=== PATIENT | female | born 1985 | race American Indian/Alaskan Native ===

== ENCOUNTER 2017-06-20 15:13 | Inpatient (IN) | payer OTHER ==
[2017-06-20 16:01] VITALS: BMI 26.6
[2017-06-20] MEDS ORDERED: Sodium Chloride 0.9% 1,000 ML IV STA ×2 (16:34→18:14)
[2017-06-20] MEDS ORDERED: Morphine 4 mg/ml ISec IVP STA ×3 (16:34→20:27)
[2017-06-20 17:12] LABS: VENOUS BLOOD GAS PO2 30 mm/Hg (30-55); VENOUS BLOOD PH 7.36 (7.32-7.43)
[2017-06-20 17:17] LABS: ALB/GLOB RATIO 1.5 (1.1-1.8); ALBUMIN 4.1 g/dL (3.0-4.8); ALT/SGPT 34 U/L (7-56); AST/SGOT 21 U/L (14-36); BLOOD UREA NITROGEN 8 mg/dL (7-21); CALCIUM 9.7 mg/dL (8.4-10.5); GFR AFRICAN-AMERICAN > 60; GFR NON-AFRICAN AMERICAN > 60; LIPASE 50 U/L (23-300)
--- NOTE | 2017-06-20 17:19 | RAD ---
HISTORY: abd pain COMPARISON: None available. TECHNIQUE: Chest, one view. FINDINGS: LUNGS: No focal consolidation. Please note that chest x-ray has limited sensitivity for the detection of pulmonary masses. PLEURA: No significant pleural effusion identified. No definite pneumothorax . CARDIOVASCULAR: Enlargement of the cardiac silhouette. OSSEOUS STRUCTURES: No acute osseous abnormality identified. VISUALIZED UPPER ABDOMEN: Unremarkable. OTHER FINDINGS: None. IMPRESSION: Enlargement of the cardiac silhouette. Unusual in a patient of this young age. Correlate clinically including echocardiogram if indicated.
[2017-06-20 17:25] LABS: BASO # 0.02 K/mm3 (0.0-2.0); BASO % 0.2 % (0.0-3.0); EOS # 0.1 (0.0-0.7); EOS % 1.3 % (1.5-5.0); GRAN # 7.53 (1.4-6.5); GRAN % 73.3 % (50.0-68.0); HEMOGLOBIN 12.8 g/dL (12.0-16.0); LYMPH % 19.3 % (22.0-35.0); MEAN CELL VOLUME 83.6 fl (80.0-105.0); MEAN CORPUSCULAR HGB CONC 33.5 g/dl (31.0-37.0); MEAN PLATELET VOLUME 10.1 fl (7.0-11.0); MONO # 0.6 (0.1-0.6); MONO % 5.9 % (1.0-6.0); RBC 4.57 10^6/uL (3.5-6.1); RED CELL DISTRIBUTION WIDTH 13.4 % (11.5-14.5); WHITE BLOOD COUNT 10.3 10^3/ul (4.5-11.0)
[2017-06-20 17:27] LABS: URINE BILIRUBIN NEGATIVE (NEGATIVE); URINE BLOOD NEGATIVE (NEGATIVE); URINE GLUCOSE (UA) NEGATIVE (NEGATIVE); URINE LEUKOCYTE ESTERASE TRACE Leu/uL (NEGATIVE); URINE NITRATE NEGATIVE (NEGATIVE); URINE PROTEIN NEGATIVE mg/dL (<30 mg/dL); URINE UROBILINOGEN 0.2 E.U./dL (<1 E.U./dL)
[2017-06-20] MEDS ORDERED: Morphine 4 mg/ml ISec ONE (17:27)
[2017-06-20 17:35] LABS: URINE APPEARANCE CLEAR (CLEAR); URINE COLOR YELLOW (YELLOW)
--- NOTE | 2017-06-20 17:42 | CP.PCM.CON ---
Addendum entered and electronically signed by Contreras Valverde MD 06/21/17 09: 06: Patient remained stable overnight, pain more localized to lower abdomen. Awaits medical workup this morning for cardiomegaly. Original Note: History of Present Illness - History of Present Illness History of Present Illness: Patient is a 32F with with no significant PMH 3months S/P who presented for sudden onset of acute abdominal pain last night. Patient states that at 10PM yesterday she experienced diffuse crampy pain. She took gas-x, mag citrate, and pepto-bismol with no relief. Patient had a regular BM yesterday AM but has had dark diarrhea after taking mag-citrate and pepto-bismol. No nausea, vomiting, dysuria, hematuria, melena, hematochezia, vaginal discharge or bleeding. Patient complains of chills but does not have a fever in the ER. Patient is tachycardic in the 110's but no other hemodynamic abnormailities. Patient has no sick contacts, never had this before. Review of Systems - Review of Systems All systems: reviewed and no additional remarkable complaints except (as per HPI ) Past Patient History - Infectious Disease Hx of Infectious Diseases: None - Past Medical History & Family History Past Medical History?: Yes Past Family History: Reviewed and not pertinent - Past Social History Smoking Status: Light Smoker < 10 Cigarettes Daily Alcohol: Occasional Drugs: Cannabis Home Situation {Lives}: With Family - PSYCHIATRIC Hx Substance Use: No - SURGICAL HISTORY Hx Surgeries: Yes Hx Carotid Endarterectomy: Yes (Last 03/23/17) Hx Section: Yes (03/2017) Meds Allergies/Adverse Reactions: Allergies Allergy/AdvReac Type Severity Reaction Status Date / Time pineapple Allergy SWELLING Verified 06/20/17 16:09 Physical Exam - Constitutional Appears: Non-toxic, No Acute Distress - Head Exam Head Exam: ATRAUMATIC, NORMOCEPHALIC - Eye Exam Eye Exam: Normal appearance, Nystagmus (horizontal) - ENT Exam ENT Exam: Mucous Membranes Moist, Normal Oropharynx - Respiratory Exam Respiratory Exam: NORMAL BREATHING PATTERN. absent: Accessory Muscle Use, Respiratory Distress - Cardiovascular Exam Cardiovascular Exam: Tachycardia, REGULAR RHYTHM - GI/Abdominal Exam GI & Abdominal Exam: Rebound, Soft, Tenderness (Diffuse, greatest in BL lower quadrants). absent: Distended Additional comments: transverse section scar well healed - Extremities Exam Extremities exam: Positive for: pedal pulses present. Negative for: calf tenderness, pedal edema - Neurological Exam Neurological exam: Alert, Oriented x3 - Psychiatric Exam Psychiatric exam: Normal Affect, Normal Mood - Skin Skin Exam: Dry, Normal Color, Warm Results - Vital Signs Recent Vital Signs: Last Vital Signs Temp 98.3 F 06/20/17 15:53 Pulse 110 H 06/20/17 15:53 Resp 18 06/20/17 15:53 BP 113/77 06/20/17 15:53 Pulse Ox 99 06/20/17 15:53 - Labs Result Diagrams: 06/20/17 16:51 06/20/17 16:51 Labs: Laboratory Results - last 24 hr 06/20/17 06/20/17 06/20/17 16:51 16:51 16:51 WBC 10.3 RBC 4.57 Hgb 12.8 Hct 38.2 MCV 83.6 MCH 28.0 MCHC 33.5 RDW 13.4 Plt Count 363 MPV 10.1 Gran % 73.3 H Lymph % (Auto) 19.3 L [place] % (Auto) 5.9 Eos % (Auto) 1.3 L Baso % (Auto) 0.2 Gran # 7.53 H Lymph # (Auto) 2.0 [place] # (Auto) 0.6 Eos # (Auto) 0.1 Baso # (Auto) 0.02 pO2 VBG pH VBG pCO2 VBG HCO3 VBG Total CO2 VBG O2 Sat (Calc) VBG Base Excess VBG Potassium Sodium 143 Chloride 107 Glucose Lactate FiO2 Potassium 3.8 Carbon Dioxide 24 Anion Gap 17 BUN 8 Creatinine 0.7 Est GFR ( Amer) > 60 Est GFR (Non-Af Amer) > 60 Random Glucose 105 Calcium 9.7 Total Bilirubin 1.1 AST 21 ALT 34 Alkaline Phosphatase 44 Total Protein 6.9 Albumin 4.1 Globulin 2.8 Albumin/Globulin Ratio 1.5 Lipase 50 Venous Blood Potassium Urine Color Yellow Urine Appearance Clear Urine pH 7.0 Ur Specific [place] 1.010 Urine Protein Negative Urine Glucose (UA) Negative Urine Ketones Negative Urine Blood Negative Urine Nitrate Negative Urine Bilirubin Negative Urine Urobilinogen 0.2 Ur Leukocyte Esterase Trace H 06/20/17 16:51 WBC RBC Hgb Hct MCV MCH MCHC RDW Plt Count MPV Gran % Lymph % (Auto) [place] % (Auto) Eos % (Auto) Baso % (Auto) Gran # Lymph # (Auto) [place] # (Auto) Eos # (Auto) Baso # (Auto) pO2 30 VBG pH 7.36 VBG pCO2 48.0 VBG HCO3 27.1 VBG Total CO2 28.6 H VBG O2 Sat (Calc) 62.9 VBG Base Excess 1.0 VBG Potassium 3.9 Sodium 139.0 Chloride 106.0 Glucose 106 H Lactate 1.1 FiO2 21.0 Potassium Carbon Dioxide Anion Gap BUN Creatinine Est GFR ( Amer) Est GFR (Non-Af Amer) Random Glucose Calcium Total Bilirubin AST ALT Alkaline Phosphatase Total Protein Albumin Globulin Albumin/Globulin Ratio Lipase Venous Blood Potassium 3.9 Urine Color Urine Appearance Urine pH Ur Specific [place] Urine Protein Urine Glucose (UA) Urine Ketones Urine Blood Urine Nitrate Urine Bilirubin Urine Urobilinogen Ur Leukocyte Esterase Assessment & Plan - Assessment and Plan (Free Text) Assessment: 32F with severe abdominal pain Plan: F/U CT abdomen and pelvis official report--no signs of free-air, appendicitis, or SBO on preliminary review PRN pain and nausea medication Vaginal exam with culture Rapid flu test aggressive IV hydration AM labs Consider trans-vaginal ultrasound and DIETITIAN TEACHING consult Discussed with Dr. Valverde--further recs per her Jennifer Camacho, PGY2
[2017-06-20 17:45] LABS: URINE RBC NEGATIVE /hpf (0-2); URINE WBC 0 - 2 /hpf (0-6)
[2017-06-20] MEDS ORDERED: Iohexol 350 MG/100 ML VIAL ONE (18:20)
--- NOTE | 2017-06-20 18:45 | ED PDOC ---
Arrival/HPI <Hanna Chowdhury - Last Filed: 06/20/17 23:08> - General Historian: Patient - History of Present Illness Time/Duration: Other (10pm last night) Symptom Onset: Sudden Symptom Course: Unchanged Quality: Cramping Severity Level: 10 <Peri Patel - Last Filed: 06/21/17 02:53> - General Chief Complaint: Abdominal Pain Time Seen by Provider: 06/20/17 15:31 - History of Present Illness Narrative History of Present Illness (Text): 06/20/17 18:41 32-year-old female presents today with abdominal pain. Patient states last night around 10 PM she suddenly developed cramping pain to the entire abdomen. Patient initially thought that it was gas or she tried Gas-X Pepto-Bismol and citrate of Magnesia without improvement in her symptoms. Patient denies chest pain or shortness of breath. Denies fevers or chills. Patient denies radiation of pain to the back. Patient denies vaginal bleeding or vaginal discharge. Patient states she was just resting comfortably burping her child when the pain started. Patient states the pain has been constant. Patient rates the pain as a 10 out of 10. Patient states 3 months ago she had a . Patient states she's had no issues since then. Patient states her last bowel movement was while she was in the emergency room. Patient states she is passing gas. No other complaints (Peri Patel) Past Medical History - Provider Review Nursing Documentation Reviewed: Yes - Travel History Have you recently traveled outside [place] w/in the past 3 mons?: No - Infectious Disease Hx of Infectious Diseases: None - Psychiatric Hx Substance Use: No - Surgical History Hx Carotid Endarterectomy: Yes (Last 03/23/17) Hx Section: Yes (03/2017) <Peri Patel - Last Filed: 06/21/17 02:53> Family/Social History - Physician Review Nursing Documentation Reviewed: Yes Family/Social History: Unknown Family HX Smoking Status: Light Smoker < 10 Cigarettes Daily Hx Alcohol Use: Yes Frequency of alcohol use: Socially Hx Substance Use: No <Peri Patel - Last Filed: 06/21/17 02:53> Allergies/Home Meds <Hanna Chowdhury - Last Filed: 06/20/17 23:08> <Peri Patel T - Last Filed: 06/21/17 02:53> Allergies/Adverse Reactions: Allergies pineapple Allergy (Verified 06/20/17 16:09) SWELLING Home Medications: Home Meds Medication Instructions Recorded Confirmed No Known Home Med 06/20/17 06/20/17 Review of Systems - Review of Systems Constitutional: absent: Fatigue, Fevers Respiratory: absent: SOB, Cough Cardiovascular: absent: Chest Pain, Palpitations Gastrointestinal: Abdominal Pain. absent: Constipation, Diarrhea, Nausea, Vomiting Genitourinary Female: absent: Dysuria, Frequency, Hematuria, Vaginal Bleeding, Vaginal Discharge Musculoskeletal: absent: Arthralgias, Back Pain, Neck Pain Skin: absent: Rash, Pruritis Neurological: absent: Headache, Dizziness Psychiatric: absent: Anxiety, Depression, Suicidal Ideation <Peri Patel - Last Filed: 06/21/17 02:53> Physical Exam Vital Signs Reviewed: Yes Temperature: Afebrile Blood Pressure: Normal Pulse: Tachycardic Respiratory Rate: Normal Appearance: Positive for: Well-Appearing, Non-Toxic, Uncomfortable Pain Distress: Mild Mental Status: Positive for: Alert and Oriented X 3 - Systems Exam Head: Present: Atraumatic Mouth: Present: Moist Mucous Membranes Neck: Present: Normal Range of Motion Respiratory/Chest: Present: Clear to Auscultation, Good Air Exchange. No: Respiratory Distress, Accessory Muscle Use Cardiovascular: Present: Regular Rate and Rhythm, Normal S1, S2. No: Murmurs Abdomen: Present: Tenderness (diffuse abdominal tenderness greatest in the lower quadrants), Normal Bowel Sounds, Guarding. No: Distention, Peritoneal Signs, Rebound Back: Present: Normal Inspection. No: CVA Tenderness, Midline Tenderness, Paraspinal Tenderness Upper Extremity: Present: Normal ROM Lower Extremity: Present: Normal ROM Neurological: Present: GCS=15, Speech Normal Skin: Present: Warm, Dry, Normal Color. No: Rashes Psychiatric: Present: Alert, Oriented x 3 <Peri Patel - Last Filed: 06/21/17 02:53> Vital Signs Temp Pulse Resp BP Pulse Ox 06/20/17 22:50 108 H 16 99/68 L 99 06/20/17 20:50 110 H 16 119/65 99 06/20/17 20:12 116 H 18 116/82 97 06/20/17 18:51 110 H 16 115/76 96 06/20/17 15:53 98.3 F 110 H 18 113/77 99 Medical Decision Making <Hanna Chowdhury - Last Filed: 06/20/17 23:08> <Peri Patel Kingsley - Last Filed: 06/21/17 02:53> ED Course and Treatment: 06/20/17 23:08 Patient with palpable diffuse abdominal pain, she is tachycardic, I feel this is related partially to her pain. Based on significant pain in abdomen with serial exams, surgery consulted, case d/w on-call surgeon Dr. Franny Valverde and surgical services director. CT abdomen/pelvis reviewed, and limitations of ct reviewed with patient and family. Cardiomegaly noted on cxr and ct. She is NOT hypotensive with serial exams. Not hypoxic. CLEARLY DENIES ANY CHEST PAIN OR SHORTNESS OF BREATH OR ANY PLEURITIC PAIN. Pelvic exam performed by ok reveals no cervical motion tenderness, no bleeding or lesions, mild left adnexal pain. EKG reveals sinus tachycardia with t wave abnormality. No prior EKG for comparison. She denies any exertional symptoms, denies chest pain or arm pain or neck, and abodminal pain pain remains palpable. Initial troponin unremarkable. D/w Dr. Zhao, will admit to hospitalist for serial exams, eval for cardiomegaly , abnormal EKG, serial abdominal exams. (Hanna Chowdhury) 06/20/17 18:43 Patient is nontoxic well appearing with stable vital signs presenting with severe abdominal pain pt was seen and evaluated by dr. Chowdhury immediately. cxr; no infiltrate. no free air; + cardiomegaly. dr. chowdhury spoke with surgical services director dr. lundberg who saw patient at bedside. CBC wnl CMP wnl Lipase wnl Urinalysis: trace leukocytes CAT scan: FINDINGS: Lower thorax: There is cardiomegaly. A small pericardial effusion is visualized. Atelectatic changes are identified at the bilateral lung bases. ABDOMEN: Liver: The liver measures 19.6 cm in the craniocaudad dimension, consistent with hepatomegaly. Gallbladder and bile ducts: No calcified stones. No ductal dilation. Pancreas: There is dilatation of the pancreatic duct measuring up to 4 mm. No acute peripancreatic stranding is visualized. Spleen: No splenomegaly. Adrenals: No mass. Kidneys and ureters: No hydronephrosis. No solid mass. Stomach and bowel: No obstruction. No mucosal thickening. Appendix: No findings to suggest acute appendicitis. PELVIS: Bladder: No mass. Reproductive: The uterus is prominent in size and retroverted. There is a small amount of free fluid within the cul-de-sac. ABDOMEN and PELVIS: Intraperitoneal space: See above. Bones/joints: No acute fracture. Soft tissues: Postoperative changes are identified involving the ventral abdominal subcutaneous tissues inferiorly. Vasculature: No abdominal aortic aneurysm. Lymph nodes: There is a nonspecific mildly enlarged inguinal lymph node on each side. No significant retroperitoneal or intrapelvic lymphadenopathy. IMPRESSION: 1. There is cardiomegaly. A small pericardial effusion is visualized. 2. Hepatomegaly. 3. There is dilatation of the pancreatic duct measuring up to 4 mm. No acute peripancreatic stranding is visualized. Correlation with pancreatic enzymes is recommended. 4. The uterus is prominent in size and retroverted. There is a small amount of free fluid within the cul-de-sac. This can be further evaluated with ultrasound. 5. There is a nonspecific mildly enlarged inguinal lymph node on each side. 6. Incidental/non-acute findings are described above. \ US: FINDINGS: Uterus/cervix: The endometrial stripe measures 1.4 cm, which is mildly thickened. The uterus is retroflexed. The uterus measures 9.3 x 5.7 x 7.8 cm. No myometrial mass. Right ovary: The right ovary measures 3.6 x 1.9 x 4.8 cm. Hypoechoic follicles are identified within the right ovary. There is physiologic blood flow within the right ovary. Left ovary: Within the left ovary, there is a 1.9 x 1.2 x 1.5 cm hypoechoic cyst. There is a tiny hyperechoic focus at the periphery of the cyst, consistent with increased complexity. The left ovary measures 4.8 x 2.3 x 4.8 cm. There is physiologic blood flow within the left ovary. Additional hypoechoic follicles are visualized within the left ovary. Free fluid: A small amount of free fluid is visualized within the cul-de- sac. Bladder: Wall is normal thickness for degree of distention, as visualized. IMPRESSION: 1. The endometrial stripe measures 1.4 cm, which is mildly thickened. 2. The uterus is retroflexed. 3. Within the left ovary, there is a 1.9 x 1.2 x 1.5 cm hypoechoic mildly complex cyst. 4. A small amount of free fluid is visualized within the cul-de-sac. 5. There is physiologic blood flow within each ovary, without evidence of torsion. 6. Follow-up ultrasonography is recommended. Patient reassessment: pt with continued abdominal tenderness. morphine added. Discussed all results with patient in depth dr. chowdhury discussed case with dr. Valverde and dr. zhao; Impression: Abdominal pain, tachycardia, abnormal ekg, cardiomegaly admit to tele (Peri Patel) - Lab Interpretations Lab Results: 06/20/17 16:51 06/20/17 16:51 Lab Results 06/20/17 20:30: Lactate Dehydrogenase 302 L, Total Creatine Kinase 81, Troponin I < 0.01, NT-Pro-B Natriuret Pep 1710 H 06/20/17 19:30: Influenza Typ A,B (EIA) Negative for flu a/b 06/20/17 16:51: pO2 30, VBG pH 7.36, VBG pCO2 48.0, VBG HCO3 27.1, VBG Total CO2 28.6 H, VBG O2 Sat (Calc) 62.9, VBG Base Excess 1.0, VBG Potassium 3.9, Sodium 139.0, Chloride 106.0, Glucose 106 H, Lactate 1.1, FiO2 21.0, Venous Blood Potassium 3.9 06/20/17 16:51: WBC 10.3, RBC 4.57, Hgb 12.8, Hct 38.2, MCV 83.6, MCH 28.0, MCHC 33.5, RDW 13.4, Plt Count 363, MPV 10.1, Gran % 73.3 H, Lymph % (Auto) 19.3 L, [place] % (Auto) 5.9, Eos % (Auto) 1.3 L, Baso % (Auto) 0.2, Gran # 7.53 H , Lymph # (Auto) 2.0, [place] # (Auto) 0.6, Eos # (Auto) 0.1, Baso # (Auto) 0.02 06/20/17 16:51: Sodium 143, Chloride 107, Potassium 3.8, Carbon Dioxide 24, Anion Gap 17, BUN 8, Creatinine 0.7, Est GFR ( Amer) > 60, Est GFR (Non- Af Amer) > 60, Random Glucose 105, Calcium 9.7, Total Bilirubin 1.1, AST 21, ALT 34, Alkaline Phosphatase 44, Total Protein 6.9, Albumin 4.1, Globulin 2.8, Albumin/Globulin Ratio 1.5, Lipase 50 06/20/17 16:51: Urine Color Yellow, Urine Appearance Clear, Urine pH 7.0, Ur Specific [place] 1.010, Urine Protein Negative, Urine Glucose (UA) Negative, Urine Ketones Negative, Urine Blood Negative, Urine Nitrate Negative, Urine Bilirubin Negative, Urine Urobilinogen 0.2, Ur Leukocyte Esterase Trace H, Urine RBC Negative, Urine WBC 0 - 2 - RAD Interpretation Radiology Orders: 06/20/17 16:34 ABD & PELVIS IV CONTRAST ONLY [CT] Stat CHEST PORTABLE [RAD] Stat 06/20/17 20:41 TRANSVAGINAL [US] Stat - Medication Orders Current Medication Orders: Morphine Sulfate (Morphine) 4 mg IVP Q4H PRN PRN Reason: Pain, severe (8-10) Pantoprazole Sodium (Protonix Ec Tab) 40 mg PO ACB OJ Discontinued Medications Famotidine (Pepcid) 20 mg IVP STAT STA Stop: 06/20/17 20:41 Last Admin: 06/20/17 22:55 Dose: 20 mg IVP Administration Document 06/20/17 22:55 HI (Rec: 06/20/17 22:55 [id number]) Charges for Administration # of IVP Administrations 1 Sodium Chloride (Sodium Chloride 0.9%) 1,000 mls @ 999 mls/hr IV .Q1H1M STA Stop: 06/20/17 17:34 Last Admin: 06/20/17 16:57 Dose: 999 mls/hr eMAR Start Stop Document 06/20/17 16:57 HI (Rec: 06/20/17 16:57 [id number]) Intravenous Solution Start Date 06/20/17 Start Time 16:57 Sodium Chloride (Sodium Chloride 0.9%) 1,000 mls @ 999 mls/hr IV .Q1H1M STA Stop: 06/20/17 19:14 Last Admin: 06/20/17 18:20 Dose: 999 mls/hr eMAR Start Stop Document 06/20/17 18:20 HI (Rec: 06/20/17 18:20 HI [id number]) Intravenous Solution Start Date 06/20/17 Start Time 18:20 Sodium Chloride (Sodium Chloride 0.9%) 1,000 mls @ 100 mls/hr IV .Q10H OJ Last Admin: 06/20/17 22:55 Dose: 100 mls/hr eMAR Start Stop Document 06/20/17 22:55 HI (Rec: 06/20/17 22:55 HI [facility] [id number]) Intravenous Solution Start Date 06/20/17 Start Time 22:55 Ketorolac Tromethamine (Toradol) 30 mg IVP STAT STA Stop: 06/20/17 16:36 Last Admin: 06/20/17 16:57 Dose: 30 mg [facility] Pain Assessment Document 06/20/17 16:57 HI (Rec: 06/20/17 16:57 HI [id number]) Pain Reassessment Is this a pain reassessment? No IVP Administration Document 06/20/17 16:57 HI (Rec: 06/20/17 16:57 HI [id number]) Charges for Administration # of IVP Administrations 1 Re-Assess: [facility] Pain Assessment Document 06/20/17 17:57 HI (Rec: 06/20/17 19:56 [place] [id number]) Pain Reassessment Is this a pain reassessment? Yes Sleep Is patient sleeping during reassessment? No Presence of Pain Presence of Pain Yes Description Intensity of Pain at present 8 Morphine Sulfate (Morphine) 4 mg IVP STAT STA Stop: 06/20/17 17:26 Last Admin: 06/20/17 17:30 Dose: 4 mg [facility] Pain Assessment Document 06/20/17 17:30 HI (Rec: 06/20/17 17:42 [id number]) Pain Reassessment Is this a pain reassessment? Yes IVP Administration Document 06/20/17 17:30 HI (Rec: 06/20/17 17:42 [id number]) Charges for Administration # of IVP Administrations 1 Re-Assess: [facility] Pain Assessment Document 06/20/17 18:30 HI (Rec: 06/20/17 19:56 HI [id number]) Pain Reassessment Is this a pain reassessment? Yes Presence of Pain Presence of Pain Yes Pain Scale Used Pain Scale Used Numeric Description Description Constant Intensity of Pain at present 5 Morphine Sulfate (Morphine) 4 mg IVP STAT STA Stop: 06/20/17 20:28 Last Admin: 06/20/17 20:49 Dose: 4 mg MAR Pain Assessment Document 06/20/17 20:49 HI (Rec: 06/20/17 20:50 [place] [id number]) Pain Reassessment Is this a pain reassessment? Yes Presence of Pain Presence of Pain Yes IVP Administration Document 06/20/17 20:49 HI (Rec: 06/20/17 20:50 HI [id number]) Charges for Administration # of IVP Administrations 1 Re-Assess: MAR Pain Assessment Document 06/20/17 21:49 HI (Rec: 06/20/17 22:40 [place] [id number]) Pain Reassessment Is this a pain reassessment? Yes Presence of Pain Presence of Pain No Ondansetron HCl (Zofran Inj) 4 mg IVP STAT STA Stop: 06/20/17 16:35 Last Admin: 06/20/17 16:57 Dose: 4 mg IVP Administration Document 06/20/17 16:57 HI (Rec: 06/20/17 16:57 [place] [id number]) Charges for Administration # of IVP Administrations 1 Disposition/Present on Arrival - Disposition Have Diagnosis and Disposition been Completed?: Yes Disposition Time: 21:23 Patient Plan: Admission, Telemetry <Hanna Chowdhury - Last Filed: 06/20/17 23:08> - Present on Arrival Any Indicators Present on Arrival: No History of DVT/PE: No History of Uncontrolled Diabetes: No Urinary Catheter: No History of Decub. Ulcer: No History Surgical Site Infection Following: None - Disposition Have Diagnosis and Disposition been Completed?: Yes Patient Plan: Admission, Telemetry <Peri Patel - Last Filed: 06/21/17 02:53> - Disposition Diagnosis: Abdominal pain, Tachycardia, Abnormal EKG Disposition: HOSPITALIZED Patient Problems: Current Active Problems Problem Status Onset Abdominal pain Acute Abnormal EKG Acute Tachycardia Acute Condition: FAIR
--- NOTE | 2017-06-20 20:08 | CT ---
EXAM: CT Abdomen and Pelvis With Intravenous Contrast EXAM DATE/TIME: 06/20/2017 4:34 PM CLINICAL HISTORY: The patient age is 32 years old and is female; Pain; Abdominal pain; Acute; Additional info: Abd pain Facility exam id and description: Ct abdpelciv abd pelvis iv contrast only TECHNIQUE: Axial computed tomography images of the abdomen and pelvis with intravenous contrast. All CT scans at this facility use one or more dose reduction techniques, viz.: automated exposure control; ma/kV adjustment per patient size (including targeted exams where dose is matched to indication; i.e. head); or iterative reconstruction technique. Coronal and sagittal reformatted images were created and reviewed. CONTRAST: 100 mL of omni 350 administered intravenously. COMPARISON: No relevant prior studies available. FINDINGS: Lower thorax: There is cardiomegaly. A small pericardial effusion is visualized. Atelectatic changes are identified at the bilateral lung bases. ABDOMEN: Liver: The liver measures 19.6 cm in the craniocaudad dimension, consistent with hepatomegaly. Gallbladder and bile ducts: No calcified stones. No ductal dilation. Pancreas: There is dilatation of the pancreatic duct measuring up to 4 mm. No acute peripancreatic stranding is visualized. Spleen: No splenomegaly. Adrenals: No mass. Kidneys and ureters: No hydronephrosis. No solid mass. Stomach and bowel: No obstruction. No mucosal thickening. Appendix: No findings to suggest acute appendicitis. PELVIS: Bladder: No mass. Reproductive: The uterus is prominent in size and retroverted. There is a small amount of free fluid within the cul-de-sac. ABDOMEN and PELVIS: Intraperitoneal space: See above. Bones/joints: No acute fracture. Soft tissues: Postoperative changes are identified involving the ventral abdominal subcutaneous tissues inferiorly. Vasculature: No abdominal aortic aneurysm. Lymph nodes: There is a nonspecific mildly enlarged inguinal lymph node on each side. No significant retroperitoneal or intrapelvic lymphadenopathy. IMPRESSION: 1. There is cardiomegaly. A small pericardial effusion is visualized. 2. Hepatomegaly. 3. There is dilatation of the pancreatic duct measuring up to 4 mm. No acute peripancreatic stranding is visualized. Correlation with pancreatic enzymes is recommended. 4. The uterus is prominent in size and retroverted. There is a small amount of free fluid within the cul-de-sac. This can be further evaluated with ultrasound. 5. There is a nonspecific mildly enlarged inguinal lymph node on each side. 6. Incidental/non-acute findings are described above.
[2017-06-20 21:24] LABS: TROPONIN I < 0.01 ng/mL
[2017-06-20] MEDS ORDERED: Morphine 4 mg/ml ISec IVP PRN (21:43)
[2017-06-20] MEDS ORDERED: Sodium Chloride 0.9% 1,000 ML IV SCH (21:45)
--- NOTE | 2017-06-20 21:49 | CP.PCM.HP ---
<Gabriele Pleitezystal - Last Filed: 06/20/17 21:45> History of Present Illness - History of Present Illness History of Present Illness: H&P for HospitalistCassandra PGY2 This is a 32yo female with no significant PMH here for abdominal pain x 1 day. She reports having sudden abdominal pain that started around 10PM yesterday. She said that the pain is cramping and is located in her LLQ and RLQ which radiates back and forth to each side, but does not radiate anywhere else. Patient denies having any nausea/vomiting/diarrhea, recent travel, sick contacts , vaginal bleeding or discharge, dysuria, hematuria or changes in her diet. Patient said she felt constipated and took gas-x, pepto bismol and mag citrate. After that her abdominal pain was not relieved, but had some diarrhea from the medications. She is noted to have 3 months ago without complications and that her periods have been regular with last LMP 06/03/17. Her last visit to the [facility] was in April without any complications. This was her 3rd and 1st . In the ED, patient had CT abd/pelvis which did not show acute abnormalities. Vaginal exam was done in ED which did not show any abnormalities or adnexal tenderness. She was noted to have some cardiomegaly on CT with nonspecific EKG changes. She denies chest pain, shortness of breath, fever/chills, numbness/tingling. Past medical history: Denies Past surgical history: 3 months ago Home meds: None Allergies: Pineapple- mouth itches Social history: Denies EtOH or drug use. Patient admits to tobacco use 1/2 ppd Family history: Denies PMD: Dr. Ventura Present on Admission - Present on Admission Any Indicators Present on Admission: No Review of Systems - Review of Systems Review of Systems: 12 point system reviewed as per HPI Past Patient History - Infectious Disease Hx of Infectious Diseases: None - Past Medical History & Family History Past Medical History?: Yes Past Family History: Reviewed and not pertinent - Past Social History Smoking Status: Light Smoker < 10 Cigarettes Daily Alcohol: Occasional Drugs: Denies Home Situation {Lives}: With Family - PSYCHIATRIC Hx Substance Use: No - SURGICAL HISTORY Hx Surgeries: Yes Hx Section: Yes (03/2017) Meds Allergies/Adverse Reactions: Allergies Allergy/AdvReac Type Severity Reaction Status Date / Time pineapple Allergy SWELLING Verified 06/20/17 16:09 Physical Exam - Constitutional Appears: No Acute Distress - Head Exam Head Exam: ATRAUMATIC, NORMAL INSPECTION, NORMOCEPHALIC - Eye Exam Eye Exam: Normal appearance, PERRL Pupil Exam: NORMAL ACCOMODATION, PERRL - ENT Exam ENT Exam: Mucous Membranes Moist - Neck Exam Neck exam: Positive for: Full Rom - Respiratory Exam Respiratory Exam: Clear to Auscultation Bilateral, NORMAL BREATHING PATTERN. absent: Rales, Rhonchi, Wheezes - Cardiovascular Exam Cardiovascular Exam: Tachycardia, REGULAR RHYTHM, +S1, +S2. absent: Gallop, Rubs, Systolic Murmur - GI/Abdominal Exam GI & Abdominal Exam: Normal Bowel Sounds, Soft, Tenderness (RLQ and LLQ). absent: Distended, Firm, Guarding, Organomegaly, Rebound - Extremities Exam Extremities exam: Positive for: normal inspection. Negative for: pedal edema - Neurological Exam Neurological exam: Alert, CN II-XII Intact, Oriented x3 - Psychiatric Exam Psychiatric exam: Normal Affect, Normal Mood - Skin Skin Exam: Dry, Warm Results - Vital Signs Recent Vital Signs: Last Vital Signs Temp 98.3 F 06/20/17 15:53 Pulse 116 H 06/20/17 20:12 Resp 18 06/20/17 20:12 BP 116/82 06/20/17 20:12 Pulse Ox 97 06/20/17 20:12 - Labs Result Diagrams: 06/20/17 16:51 06/20/17 16:51 Labs: Laboratory Results - last 24 hr 06/20/17 06/20/17 06/20/17 16:51 16:51 16:51 WBC 10.3 RBC 4.57 Hgb 12.8 Hct 38.2 MCV 83.6 MCH 28.0 MCHC 33.5 RDW 13.4 Plt Count 363 MPV 10.1 Gran % 73.3 H Lymph % (Auto) 19.3 L [place] % (Auto) 5.9 Eos % (Auto) 1.3 L Baso % (Auto) 0.2 Gran # 7.53 H Lymph # (Auto) 2.0 [place] # (Auto) 0.6 Eos # (Auto) 0.1 Baso # (Auto) 0.02 pO2 VBG pH VBG pCO2 VBG HCO3 VBG Total CO2 VBG O2 Sat (Calc) VBG Base Excess VBG Potassium Sodium 143 Chloride 107 Glucose Lactate FiO2 Potassium 3.8 Carbon Dioxide 24 Anion Gap 17 BUN 8 Creatinine 0.7 Est GFR ( Amer) > 60 Est GFR (Non-Af Amer) > 60 Random Glucose 105 Calcium 9.7 Total Bilirubin 1.1 AST 21 ALT 34 Alkaline Phosphatase 44 Lactate Dehydrogenase Total Creatine Kinase Troponin I Total Protein 6.9 Albumin 4.1 Globulin 2.8 Albumin/Globulin Ratio 1.5 Lipase 50 Venous Blood Potassium Urine Color Yellow Urine Appearance Clear Urine pH 7.0 Ur Specific [place] 1.010 Urine Protein Negative Urine Glucose (UA) Negative Urine Ketones Negative Urine Blood Negative Urine Nitrate Negative Urine Bilirubin Negative Urine Urobilinogen 0.2 Ur Leukocyte Esterase Trace H Urine RBC Negative Urine WBC 0 - 2 Influenza Typ A,B (EIA) 06/20/17 06/20/17 06/20/17 16:51 19:30 20:30 WBC RBC Hgb Hct MCV MCH MCHC RDW Plt Count MPV Gran % Lymph % (Auto) [place] % (Auto) Eos % (Auto) Baso % (Auto) Gran # Lymph # (Auto) [place] # (Auto) Eos # (Auto) Baso # (Auto) pO2 30 VBG pH 7.36 VBG pCO2 48.0 VBG HCO3 27.1 VBG Total CO2 28.6 H VBG O2 Sat (Calc) 62.9 VBG Base Excess 1.0 VBG Potassium 3.9 Sodium 139.0 Chloride 106.0 Glucose 106 H Lactate 1.1 FiO2 21.0 Potassium Carbon Dioxide Anion Gap BUN Creatinine Est GFR ( Amer) Est GFR (Non-Af Amer) Random Glucose Calcium Total Bilirubin AST ALT Alkaline Phosphatase Lactate Dehydrogenase 302 L Total Creatine Kinase 81 Troponin I < 0.01 Total Protein Albumin Globulin Albumin/Globulin Ratio Lipase Venous Blood Potassium 3.9 Urine Color Urine Appearance Urine pH Ur Specific [place] Urine Protein Urine Glucose (UA) Urine Ketones Urine Blood Urine Nitrate Urine Bilirubin Urine Urobilinogen Ur Leukocyte Esterase Urine RBC Urine WBC Influenza Typ A,B (EIA) Negative for flu a/b Assessment & Plan - Assessment and Plan (Free Text) Assessment: This is a 32yo Female with no significant past medical history status post C- section 3 months ago who is admitted for intractable abdominal pain as well as cardiomegaly. Plan: 1. Abdominal pain - DDx: Ovarian cyst v. adhesions - CT abd/pelvis showed cardiomegaly, hepatomegaly, dilatation of the pancreatic duct measuring up to 4 mm. No acute peripancreatic stranding is visualized, uterus is prominent in size and retroverted. There is a small amount of free fluid within the cul-de-sac. - Lipase normal, CMP normal - Transvaginal U/S pending - Consider [facility] consult - Morphine prn pain - No Zofran due to prolonged Qtc of 495 - Surgery was consulted- recommended serial abdominal exams - NS@100 2. Cardiomegaly - seen on CT and CXR - EKG showed sinus tach with nonspecific T wave abnormalities - Troponin <0.01 x 1- will trend - Cardio consulted - Echo ordered - BNP pending - ABG was normal- will check D-dimer GI ppx: Protonix DVT ppx: SCDs Case seen, discussed and reviewed with attending. Cassandra Pleitez PGY2 <Donovan Zhao - Last Filed: 06/21/17 02:55> Results - Vital Signs Recent Vital Signs: Last Vital Signs Temp 98.6 F 06/21/17 00:30 Pulse 105 H 06/21/17 02:00 Resp 20 06/21/17 01:11 BP 99/68 L 06/21/17 01:11 Pulse Ox 100 06/21/17 00:30 - Labs Result Diagrams: 06/20/17 16:51 06/20/17 16:51 Labs: Laboratory Results - last 24 hr 06/20/17 06/21/17 22:28 00:20 D-Dimer, Quantitative 235 Troponin I < 0.01 Attending/Attestation - Attestation I have personally seen and examined this patient.: Yes I have fully participated in the care of the patient.: Yes I have reviewed all pertinent clinical information: Yes Notes (Text): 06/21/17 02:55 Patient was seen when she was in the ER . Agree with history, physical examination, assessment and plan.
--- NOTE | 2017-06-20 22:28 | US ---
EXAM: US Pelvis Complete, Transabdominal US Pelvis, Transvaginal US Duplex Arterial/Venous of the Pelvis, Complete EXAM DATE/TIME: 06/20/2017 8:41 PM CLINICAL HISTORY: The patient age is 32 years old and is female; Pain; Pelvic pain; Prior surgery; Surgery date: 1-6 months; Surgery type: ; Additional info: of critical access hospital Facility exam id and description: Us transve transvaginal TECHNIQUE: Real-time transabdominal and transvaginal pelvic ultrasound (complete) with image documentation. Transvaginal imaging was used for better evaluation of the endometrium and adnexa. Real-time duplex ultrasound scan of the arterial and venous flow of the pelvis with color Doppler flow and spectral waveform analysis. COMPARISON: CT - ABD PELVIS IV CONTRAST ONLY 2017-06-20 18:39 FINDINGS: Uterus/cervix: The endometrial stripe measures 1.4 cm, which is mildly thickened. The uterus is retroflexed. The uterus measures 9.3 x 5.7 x 7.8 cm. No myometrial mass. Right ovary: The right ovary measures 3.6 x 1.9 x 4.8 cm. Hypoechoic follicles are identified within the right ovary. There is physiologic blood flow within the right ovary. Left ovary: Within the left ovary, there is a 1.9 x 1.2 x 1.5 cm hypoechoic cyst. There is a tiny hyperechoic focus at the periphery of the cyst, consistent with increased complexity. The left ovary measures 4.8 x 2.3 x 4.8 cm. There is physiologic blood flow within the left ovary. Additional hypoechoic follicles are visualized within the left ovary. Free fluid: A small amount of free fluid is visualized within the cul-de-sac. Bladder: Wall is normal thickness for degree of distention, as visualized. IMPRESSION: 1. The endometrial stripe measures 1.4 cm, which is mildly thickened. 2. The uterus is retroflexed. 3. Within the left ovary, there is a 1.9 x 1.2 x 1.5 cm hypoechoic mildly complex cyst. 4. A small amount of free fluid is visualized within the cul-de-sac. 5. There is physiologic blood flow within each ovary, without evidence of torsion. 6. Follow-up ultrasonography is recommended.
[2017-06-20 23:11] LABS: B-TYPE NATRIURETIC PEPTIDE 1710 pg/mL (0-450)
[2017-06-21 01:21] VITALS: RESP 20
[2017-06-21 06:52] LABS: BASO # 0.01 K/mm3 (0.0-2.0); BASO % 0.1 % (0.0-3.0); EOS # 0.2 (0.0-0.7); GRAN # 4.22 (1.4-6.5); GRAN % 60.6 % (50.0-68.0); HEMOGLOBIN 10.6 g/dL (12.0-16.0); LYMPH % 28.7 % (22.0-35.0); MEAN CELL VOLUME 83.3 fl (80.0-105.0); MEAN CORPUSCULAR HEMOGLOBIN 27.2 pg (25.0-35.0); MEAN CORPUSCULAR HGB CONC 32.6 g/dl (31.0-37.0); MEAN PLATELET VOLUME 9.7 fl (7.0-11.0); MONO # 0.5 (0.1-0.6); MONO % 7.6 % (1.0-6.0); RBC 3.9 10^6/uL (3.5-6.1); RED CELL DISTRIBUTION WIDTH 13.4 % (11.5-14.5)
[2017-06-21] MEDS ORDERED: Pantoprazole 40 mg EC Tab PO SCH (07:30)
[2017-06-21 08:00] LABS: ALB/GLOB RATIO 1.2 (1.1-1.8); ALBUMIN 2.9 g/dL (3.0-4.8); ALT/SGPT 35 U/L (7-56); AST/SGOT 15 U/L (14-36); BLOOD UREA NITROGEN 7 mg/dL (7-21); GFR AFRICAN-AMERICAN > 60; GFR NON-AFRICAN AMERICAN > 60
--- NOTE | 2017-06-21 09:12 | CP.PCM.PN ---
Subjective - Date & Time of Evaluation Date of Evaluation: 06/21/17 Time of Evaluation: 07:20 - Subjective Subjective: Patient seen and examined at bedside. Patient denies any abdominal pain, nausea , vomiting, or diarrhea. Patient states her abdominal pain has reduced in severity. Nurse reports no events overnight. Objective - Vital Signs/Intake and Output Vital Signs (last 24 hours): Temp Pulse Resp BP Pulse Ox 98.9 F 106 H 20 96/64 L 97 06/21/17 05:38 06/21/17 05:38 06/21/17 05:38 06/21/17 05:38 06/21/17 05:38 Intake and Output: 06/21/17 06/21/17 06:59 18:59 Intake Total 240 Output Total 0 Balance 240 - Medications Medications: Current Medications Morphine Sulfate (Morphine) 4 mg IVP Q4H PRN PRN Reason: Pain, severe (8-10) Pantoprazole Sodium (Protonix Ec Tab) 40 mg PO ACB OJ - Labs Labs: 06/21/17 06:30 06/21/17 06:30 - Constitutional Appears: Well, Non-toxic - Head Exam Head Exam: ATRAUMATIC, NORMOCEPHALIC - Eye Exam Eye Exam: EOMI, Normal appearance - ENT Exam ENT Exam: Mucous Membranes Moist, Normal Oropharynx - Neck Exam Neck Exam: Normal Inspection - Respiratory Exam Respiratory Exam: NORMAL BREATHING PATTERN. absent: Accessory Muscle Use - Cardiovascular Exam Cardiovascular Exam: absent: Tachycardia - GI/Abdominal Exam GI & Abdominal Exam: Soft. absent: Guarding, Rigid, Tenderness, Rebound Additional comments: surgical scar noted - Extremities Exam Extremities Exam: Normal Inspection. absent: Calf Tenderness - Neurological Exam Neurological Exam: Alert, Awake, Oriented x3 - Psychiatric Exam Psychiatric exam: Normal Affect, Normal Mood - Skin Skin Exam: Dry, Intact, Normal Color, Warm Assessment and Plan - Assessment and Plan (Free Text) Assessment: 32 year old female presenting with diffuse abdominal pain that has resolved with medical therapy. Plan: ADAT No surgical intervention planned at this time. Please reconsult as necessary As always, thank you for allowing us to participate in the care of the patient. Further recommendations per Dr. Valverde
[2017-06-21] MEDS ORDERED: Enoxaparin 40 mg Syringe SC SCH (12:15)
[2017-06-21 13:12] VITALS: BP 99/73; PULSE 113; TEMP 98.4; O2SAT 100
--- NOTE | 2017-06-21 14:23 | CARD ---
APPROVED REPORT EXAM: Two-dimensional and M-mode echocardiogram with Doppler and color Doppler. INDICATION CARDIOMEGALY 2D DIMENSIONS Left Atrium (2D)5.5 (1.6-4.0cm)IVSd1.2 (0.7-1.1cm) LVDd6.2 (3.9-5.9cm)PWd1.1 (0.7-1.1cm) LVDs5.5 (2.5-4.0cm)FS (%) 9.5 % LVEF (%)20.3 (>50%) M-Mode DIMENSIONS Aortic Root3.00 (2.2-3.7cm)Aortic Cusp Exc.1.60 (1.5-2.0cm) Mitral Valve E/A ratio0.0 TDI E/Lateral E'0.0E/Medial E'0.0 Tricuspid Valve TR Peak [id number] Peak Gr.58mmHg [id number] LEFT VENTRICLE The Left Ventricle is mildly dilated. There is normal left ventricular wall thickness. The systolic function is severely impaired. There is global hypokinesis of the left ventricle. No left ventricle thrombus noted on this study. RIGHT VENTRICLE The right ventricle is normal size. There is normal right ventricular wall thickness. RV Systolic function is moderately reduced. ATRIA The left atrium is moderately dilated. The right atrium is mildly dilated. AORTIC VALVE The aortic valve is normal in structure. No aortic regurgitation is present. There is no aortic valvular stenosis. MITRAL VALVE The mitral valve is moderately thickened. Mitral regurgitation is severe. The mitral regurgitant jet is eccentrically directed. TRICUSPID VALVE There is moderate tricuspid regurgitation. There is moderate to severe pulmonary hypertension. GREAT VESSELS The aortic root is normal in size. PERICARDIAL EFFUSION There is a trace circumferential pericardial effusion. <Conclusion> The Left Ventricle is mildly dilated. There is normal left ventricular wall thickness. The systolic function is severely impaired. There is global hypokinesis of the left ventricle. There is moderate tricuspid regurgitation. There is moderate to severe pulmonary hypertension.
--- NOTE | 2017-06-21 14:29 | CP.PCM.DIS ---
<Berna Lyon - Last Filed: 06/21/17 15:06> Provider - Provider Date of Admission: 06/20/17 21:21 Attending physician: Florence Gomez MD Primary care physician: Javy Ventura MD Consults: Die Casting Machine Setter Dr Johnson Cardio Dr Chakraborty Time Spent in preparation of Discharge (in minutes): 0 Diagnosis - Discharge Diagnosis (1) Cardiomegaly Status: Acute (2) Cardiomyopathy Status: Acute (3) Abdominal pain Status: Acute (4) Abnormal EKG Status: Acute Hospital Course - Lab Results Lab Results: Most Recent Lab Values WBC 7.0 10^3/ul (4.5-11.0) D 06/21/17 06:30 RBC 3.90 10^6/uL (3.5-6.1) 06/21/17 06:30 Hgb 10.6 g/dL (12.0-16.0) L D 06/21/17 06:30 Hct 32.5 % (36.0-48.0) L 06/21/17 06:30 MCV 83.3 fl (80.0-105.0) 06/21/17 06:30 MCH 27.2 pg (25.0-35.0) 06/21/17 06:30 MCHC 32.6 g/dl (31.0-37.0) 06/21/17 06:30 RDW 13.4 % (11.5-14.5) 06/21/17 06:30 Plt Count 291 10^3/uL (120.0-450.0) 06/21/17 06:30 MPV 9.7 fl (7.0-11.0) 06/21/17 06:30 Gran % 60.6 % (50.0-68.0) 06/21/17 06:30 Lymph % (Auto) 28.7 % (22.0-35.0) 06/21/17 06:30 [place] % (Auto) 7.6 % (1.0-6.0) H 06/21/17 06:30 Eos % (Auto) 3.0 % (1.5-5.0) 06/21/17 06:30 Baso % (Auto) 0.1 % (0.0-3.0) 06/21/17 06:30 Gran # 4.22 (1.4-6.5) 06/21/17 06:30 Lymph # (Auto) 2.0 (1.2-3.4) 06/21/17 06:30 [place] # (Auto) 0.5 (0.1-0.6) 06/21/17 06:30 Eos # (Auto) 0.2 (0.0-0.7) 06/21/17 06:30 Baso # (Auto) 0.01 K/mm3 (0.0-2.0) 06/21/17 06:30 D-Dimer, Quantitative 235 ng/mL (0-243) 06/20/17 22:28 pO2 30 mm/Hg (30-55) 06/20/17 16:51 VBG pH 7.36 (7.32-7.43) 06/20/17 16:51 VBG pCO2 48.0 (40-60) 06/20/17 16:51 VBG HCO3 27.1 mmol/l (21-28) 06/20/17 16:51 VBG Total CO2 28.6 mmol.L (22-28) H 06/20/17 16:51 VBG O2 Sat (Calc) 62.9 % (40-65) 06/20/17 16:51 VBG Base Excess 1.0 mmol/L (0.0-2.0) 06/20/17 16:51 VBG Potassium 3.9 mmol/L (3.6-5.2) 06/20/17 16:51 Sodium 139.0 mmol/L (132-148) 06/20/17 16:51 Chloride 106.0 mmol/L (98-107) 06/20/17 16:51 Glucose 106 mg/dl (65-105) H 06/20/17 16:51 Lactate 1.1 mmol/L (0.7-2.1) 06/20/17 16:51 FiO2 21.0 % 06/20/17 16:51 Sodium 141 mmol/L (132-148) 06/21/17 06:30 Potassium 3.8 mmol/L (3.6-5.0) 06/21/17 06:30 Chloride 110 mmol/L (98-107) H 06/21/17 06:30 Carbon Dioxide 22 mmol/L (21-33) 06/21/17 06:30 Anion Gap 13 (10-20) 06/21/17 06:30 BUN 7 mg/dL (7-21) 06/21/17 06:30 Creatinine 0.7 mg/dl (0.7-1.2) 06/21/17 06:30 Est GFR ( Amer) > 60 06/21/17 06:30 Est GFR (Non-Af Amer) > 60 06/21/17 06:30 Random Glucose 89 mg/dL (70-110) 06/21/17 06:30 Calcium 9.0 mg/dL (8.4-10.5) 06/21/17 06:30 Total Bilirubin 0.5 mg/dL (0.2-1.3) 06/21/17 06:30 AST 15 U/L (14-36) 06/21/17 06:30 ALT 35 U/L (7-56) 06/21/17 06:30 Alkaline Phosphatase 44 U/L (38-126) 06/21/17 06:30 Lactate Dehydrogenase 302 U/L (333-699) L 06/20/17 20:30 Total Creatine Kinase 81 U/L (35-230) 06/20/17 20:30 Troponin I < 0.01 ng/mL 06/21/17 06:30 NT-Pro-B Natriuret Pep 1710 pg/mL (0-450) H 06/20/17 20:30 Total Protein 5.2 g/dL (5.8-8.3) L 06/21/17 06:30 Albumin 2.9 g/dL (3.0-4.8) L 06/21/17 06:30 Globulin 2.3 gm/dL 06/21/17 06:30 Albumin/Globulin Ratio 1.2 (1.1-1.8) 06/21/17 06:30 Lipase 50 U/L (23-300) 06/20/17 16:51 Venous Blood Potassium 3.9 mmol/L (3.6-5.2) 06/20/17 16:51 Urine Color Yellow (YELLOW) 06/20/17 16:51 Urine Appearance Clear (CLEAR) 06/20/17 16:51 Urine pH 7.0 (4.7-8.0) 06/20/17 16:51 Ur Specific [place] 1.010 (1.005-1.035) 06/20/17 16:51 Urine Protein Negative mg/dL (<30 mg/dL) 06/20/17 16:51 Urine Glucose (UA) Negative mg/dL (NEGATIVE) 06/20/17 16:51 Urine Ketones Negative mg/dL (NEGATIVE) 06/20/17 16:51 Urine Blood Negative (NEGATIVE) 06/20/17 16:51 Urine Nitrate Negative (NEGATIVE) 06/20/17 16:51 Urine Bilirubin Negative (NEGATIVE) 06/20/17 16:51 Urine Urobilinogen 0.2 E.U./dL (<1 E.U./dL) 06/20/17 16:51 Ur Leukocyte Esterase Trace [place]/uL (NEGATIVE) H 06/20/17 16:51 Urine RBC Negative /hpf (0-2) 06/20/17 16:51 Urine WBC 0 - 2 /hpf (0-6) 06/20/17 16:51 Influenza Typ A,B (EIA) Negative for flu a/b (NEGATIVE) 06/20/17 19:30 - Hospital Course Hospital Course: 32 year old female , recent C section 3 months ago, with no significant PMH , presents for lower abdominal pain for past 1.5 day prior to arrival. CT and/ pelvis showed small fluid within cup-de-sac, cardiomegaly and hepatomeagly, no other acute abnormalities. Pelvic US showed left ovarian complex cyst 1.9x1.2x1.5 cm. Pelvic exam in ED showed no vaginal discharge or adnexal tenderness. Pt admitted for intractable abdominal pain. Pt tolerating regular diet well, with per pain subsiding after morphine given in the ED. Pt found to be have a prolonged QTC 495 on EKG. Die Casting Machine Setter and cardiology consulted on the case. Preliminary echocardiogram report shows EF 20%. Pt however demands to leave now as she has to take care of a 3 month old baby at home. Pt explained well that she needs to stay in the hospital to find an appropriate management for her abdominal pain, heart condition (likely cardiomyopathy). She needs an appropriate medication regimen. However, pt refused and said that she will follow up outpatient with Dr Ventura. Discharge Exam - Head Exam Head Exam: ATRAUMATIC, NORMOCEPHALIC - Eye Exam Eye Exam: EOMI, PERRL Pupil Exam: NORMAL ACCOMODATION, PERRL. absent: Fixed, Irregular - ENT Exam ENT Exam: Mucous Membranes Moist - Neck Exam Neck exam: Full Rom - Respiratory Exam Respiratory Exam: Clear to PA & Lateral, NORMAL BREATHING PATTERN. absent: Chest Wall Tenderness, Rales, Wheezes, Respiratory Distress - Cardiovascular Exam Cardiovascular Exam: RRR, +S1, +S2. absent: Systolic Murmur - GI/Abdominal Exam GI & Abdominal Exam: Normal Bowel Sounds, Soft. absent: Distended, Firm, Rigid , Tenderness - Extremities Exam Extremities exam: normal inspection - Back Exam Back exam: NORMAL INSPECTION - Neurological Exam Neurological exam: Alert, Normal Gait, Oriented x3 - Psychiatric Exam Psychiatric exam: Normal Affect, Normal Mood - Skin Skin Exam: Dry, Normal Color, Warm Discharge Plan - Follow Up Plan Condition: FAIR Disposition: AGAINST MEDICAL ADVICE Patient education suggested?: Yes Instructions: Dilated Cardiomyopathy (DC), Ovarian Cyst (DC), Acute Abdominal Pain (DC) Additional Instructions: - Pt advised to stay in the hospital to be evaluated by the Eye[facility] Cutter, Cardiology. - Pt's prelim echocardiogram report shows EF 20%. Pt informed of the findings. - Pt found to have left ovarian complex cyst 1.9x1.2x1.5 cm. - Pt left AMA. Advised to return to the ER if any concerns -Follow up with Dr Ventura as soon as possible. Referrals: Javy Ventura MD [Primary Care Provider] - <Florence Gomez - Last Filed: 06/21/17 16:14> Provider - Provider Date of Admission: 06/20/17 21:21 Attending physician: Florence Gomez MD Primary care physician: Javy Ventura MD Hospital Course - Lab Results Lab Results: Most Recent Lab Values WBC 7.0 10^3/ul (4.5-11.0) D 06/21/17 06:30 RBC 3.90 10^6/uL (3.5-6.1) 06/21/17 06:30 Hgb 10.6 g/dL (12.0-16.0) L D 06/21/17 06:30 Hct 32.5 % (36.0-48.0) L 06/21/17 06:30 MCV 83.3 fl (80.0-105.0) 06/21/17 06:30 MCH 27.2 pg (25.0-35.0) 06/21/17 06:30 MCHC 32.6 g/dl (31.0-37.0) 06/21/17 06:30 RDW 13.4 % (11.5-14.5) 06/21/17 06:30 Plt Count 291 10^3/uL (120.0-450.0) 06/21/17 06:30 MPV 9.7 fl (7.0-11.0) 06/21/17 06:30 Gran % 60.6 % (50.0-68.0) 06/21/17 06:30 Lymph % (Auto) 28.7 % (22.0-35.0) 06/21/17 06:30 [place] % (Auto) 7.6 % (1.0-6.0) H 06/21/17 06:30 Eos % (Auto) 3.0 % (1.5-5.0) 06/21/17 06:30 Baso % (Auto) 0.1 % (0.0-3.0) 06/21/17 06:30 Gran # 4.22 (1.4-6.5) 06/21/17 06:30 Lymph # (Auto) 2.0 (1.2-3.4) 06/21/17 06:30 [place] # (Auto) 0.5 (0.1-0.6) 06/21/17 06:30 Eos # (Auto) 0.2 (0.0-0.7) 06/21/17 06:30 Baso # (Auto) 0.01 K/mm3 (0.0-2.0) 06/21/17 06:30 D-Dimer, Quantitative 235 ng/mL (0-243) 06/20/17 22:28 pO2 30 mm/Hg (30-55) 06/20/17 16:51 VBG pH 7.36 (7.32-7.43) 06/20/17 16:51 VBG pCO2 48.0 (40-60) 06/20/17 16:51 VBG HCO3 27.1 mmol/l (21-28) 06/20/17 16:51 VBG Total CO2 28.6 mmol.L (22-28) H 06/20/17 16:51 VBG O2 Sat (Calc) 62.9 % (40-65) 06/20/17 16:51 VBG Base Excess 1.0 mmol/L (0.0-2.0) 06/20/17 16:51 VBG Potassium 3.9 mmol/L (3.6-5.2) 06/20/17 16:51 Sodium 139.0 mmol/L (132-148) 06/20/17 16:51 Chloride 106.0 mmol/L (98-107) 06/20/17 16:51 Glucose 106 mg/dl (65-105) H 06/20/17 16:51 Lactate 1.1 mmol/L (0.7-2.1) 06/20/17 16:51 FiO2 21.0 % 06/20/17 16:51 Sodium 141 mmol/L (132-148) 06/21/17 06:30 Potassium 3.8 mmol/L (3.6-5.0) 06/21/17 06:30 Chloride 110 mmol/L (98-107) H 06/21/17 06:30 Carbon Dioxide 22 mmol/L (21-33) 06/21/17 06:30 Anion Gap 13 (10-20) 06/21/17 06:30 BUN 7 mg/dL (7-21) 06/21/17 06:30 Creatinine 0.7 mg/dl (0.7-1.2) 06/21/17 06:30 Est GFR ( Amer) > 60 06/21/17 06:30 Est GFR (Non-Af Amer) > 60 06/21/17 06:30 Random Glucose 89 mg/dL (70-110) 06/21/17 06:30 Calcium 9.0 mg/dL (8.4-10.5) 06/21/17 06:30 Total Bilirubin 0.5 mg/dL (0.2-1.3) 06/21/17 06:30 AST 15 U/L (14-36) 06/21/17 06:30 ALT 35 U/L (7-56) 06/21/17 06:30 Alkaline Phosphatase 44 U/L (38-126) 06/21/17 06:30 Lactate Dehydrogenase 302 U/L (333-699) L 06/20/17 20:30 Total Creatine Kinase 81 U/L (35-230) 06/20/17 20:30 Troponin I < 0.01 ng/mL 06/21/17 06:30 NT-Pro-B Natriuret Pep 1710 pg/mL (0-450) H 06/20/17 20:30 Total Protein 5.2 g/dL (5.8-8.3) L 06/21/17 06:30 Albumin 2.9 g/dL (3.0-4.8) L 06/21/17 06:30 Globulin 2.3 gm/dL 06/21/17 06:30 Albumin/Globulin Ratio 1.2 (1.1-1.8) 06/21/17 06:30 Lipase 50 U/L (23-300) 06/20/17 16:51 Venous Blood Potassium 3.9 mmol/L (3.6-5.2) 06/20/17 16:51 Urine Color Yellow (YELLOW) 06/20/17 16:51 Urine Appearance Clear (CLEAR) 06/20/17 16:51 Urine pH 7.0 (4.7-8.0) 06/20/17 16:51 Ur Specific [place] 1.010 (1.005-1.035) 06/20/17 16:51 Urine Protein Negative mg/dL (<30 mg/dL) 06/20/17 16:51 Urine Glucose (UA) Negative mg/dL (NEGATIVE) 06/20/17 16:51 Urine Ketones Negative mg/dL (NEGATIVE) 06/20/17 16:51 Urine Blood Negative (NEGATIVE) 06/20/17 16:51 Urine Nitrate Negative (NEGATIVE) 06/20/17 16:51 Urine Bilirubin Negative (NEGATIVE) 06/20/17 16:51 Urine Urobilinogen 0.2 E.U./dL (<1 E.U./dL) 06/20/17 16:51 Ur Leukocyte Esterase Trace Joshua/uL (NEGATIVE) H 06/20/17 16:51 Urine RBC Negative /hpf (0-2) 06/20/17 16:51 Urine WBC 0 - 2 /hpf (0-6) 06/20/17 16:51 Influenza Typ A,B (EIA) Negative for flu a/b (NEGATIVE) 06/20/17 19:30 Attending/Attestation - Attestation I have personally seen and examined this patient.: Yes I have fully participated in the care of the patient.: Yes I have reviewed all pertinent clinical information, including history, physical exam and plan: Yes
--- NOTE | 2017-06-21 16:12 | CARD ---
APPROVED REPORT EKG Measurement Heart [id number] <Conclusion> Sinus tachycardia Possible Left atrial enlargement T wave abnormality, consider inferior ischemia T wave abnormality, consider anterolateral ischemia Abnormal ECG
--- NOTE | 2017-06-22 09:34 | CON ---
DATE: CARDIOLOGY CONSULT HISTORY OF PRESENT ILLNESS: The patient was very uncooperative in history taking and she only limited my questions to the heart and refused to answer other questions about her medical history. When asked about any prior cardiac history, the patient denied having any and when I asked about chest pain, she denies having chest pain. From the records and from my discussion with Dr. Wick, the primary physician, the patient is a 32 years old female who presented with abdominal pain around 10 p.m. yesterday, which is cramping in nature. The patient tried Pepto-Bismol and magnesium citrate without improvement. She denies any chest pain or shortness of breath. She denies any fever or chills. The patient 3 months ago had section and she states that she had no issues then. MEDICATIONS: Morphine sulfate 4 mg intravenously q.4 hours p.r.n., Protonix 40 mg p.o. once a day. PHYSICAL EXAMINATION: GENERAL: The patient is a young middle-aged female, who does not appear to be in any distress. VITAL SIGNS: Blood pressure 96/64, heart rate 62, temperature 98.9, and respirations 20. HEENT: Normocephalic. CHEST: Clear. HEART: S1 and S2 regular. ABDOMEN: Soft. EXTREMITIES: No edema. LABORATORY DATA: Hemoglobin and hematocrit are 10.6 and 32.5 with drop of about 2 g compared to yesterday. White count and platelet count are within normal limits. Today's SMA-7 is within normal limits except for chloride of 110. Three sets of troponins are negative. D-dimer is within normal limits. Abdomen and pelvis CT scan reveals cardiomegaly, hepatomegaly, dilatations of pancreatic duct, nonspecific enlarged inguinal lymph nodes. Chest x-ray revealed cardiomegaly. Preliminary echo findings are consistent with severely depressed ejection fraction, which was estimated at 20% and severe pulmonary hypertension. ASSESSMENT: 1. Consider Cardiomyopathy. 2. Severe pulmonary hypertension. 3. Abnormal EKG with sinus tachycardia and inferior and anterolateral ischemia. RECOMMENDATIONS: Start Coreg at 3.125 mg twice a day, subcutaneous Lovenox at 40 mg once a day, Lasix 20 mg intravenous once a day, enalapril 2.5 mg daily. I will review the 2D echo study. Obtain urine drug screen and discuss option of cardiac catheterization with the patient. Nic Chakraborty MD [facility] # [id number] JOSTETE
== END 2017-06-21 15:15 | disposition left against medical advice (07) | DRG 376 ==
LOC: ED 15:13 → ERH 21:21 → 3RSO 06-21 00:06
PROVIDERS: ADMIT Internal Medicine; ATTEND Internal Medicine
DX: O90.3 Peripartum cardiomyopathy (principal); I27.20 Pulmonary hypertension, unspecified; I31.3 Pericardial effusion (noninflammatory); K59.00 Constipation, unspecified; N83.292 Other ovarian cyst, left side; F17.210 Nicotine dependence, cigarettes, uncomplicated; Z91.018 Allergy to other foods